=== PATIENT | female | born 1975 | race Caucasian/White ===

== ENCOUNTER 2024-03-13 14:20 | Emergency (ER) | payer MEDICARE, MEDICAID, SELFPAY ==
[2024-03-13 14:27] VITALS: BP 126/87; PULSE 91; TEMP 36.8; O2SAT 95; BMI 32.9
--- NOTE | 2024-03-13 14:37 | XR_ITS ---
The [address] [address] Patient Name: LISA MATIAS MRN: [id number] date: 1975 Sex: F Assigned Patient Location: ER Current Patient Location: ER Accession/Order Number: [id number] Exam Date: 03/13/2024 15:05 Report Date: 03/13/2024 15:49 At the request of: LISANDRA OLIVARES Procedure: XR hand RT 2V PROCEDURE: XR hand RT 2V, XR wrist RT min 3V HISTORY: fall ; right hand pain after falling COMPARISON: None. FINDINGS: BONES:No fracture, acute abnormality, or significant arthropathy. SOFT TISSUES:No visible soft tissue swelling. EFFUSION:None visible. OTHER: Negative. XR/XR hand RT 2V IMPRESSION: 1. No acute bone abnormality. Electronically authenticated by: DOROTHY CAMILO Date: 03/13/2024 15:49
--- NOTE | 2024-03-13 14:37 | XR_ITS ---
The [address] [address] Patient Name: LISA MATIAS MRN: [id number] date: 1975 Sex: F Assigned Patient Location: ER Current Patient Location: ER Accession/Order Number: [id number] Exam Date: 03/13/2024 15:05 Report Date: 03/13/2024 15:51 At the request of: LISANDRA OLIVARES Procedure: XR shoulder REGINA min 2V EXAMINATION: XR shoulder REGINA min 2V HISTORY: fall ; bilateral shoulder pain COMPARISON: No relevant comparison available. FINDINGS: RIGHT FINDINGS: BONES: No significant arthropathy or acute abnormality. SOFT TISSUES: No visible soft tissue swelling. OTHER: Healing fractures of the right 5th, sixth, seventh ribs. LEFT FINDINGS: BONES: No significant arthropathy or acute abnormality. SOFT TISSUES: No visible soft tissue swelling. OTHER: Negative. XR/XR shoulder REGINA min 2V IMPRESSION: RIGHT CONCLUSION: 1. No acute abnormality or significant degenerative changes of the right shoulder. 2. Healing right rib fractures. No comparison studies. LEFT CONCLUSION: 1. No acute abnormality or significant degenerative changes of the left shoulder. Electronically authenticated by: DOROTHY CAMILO Date: 03/13/2024 15:51
--- NOTE | 2024-03-13 14:38 | XR_ITS ---
The [address] [address] Patient Name: LISA MATIAS MRN: [id number] date: 1975 Sex: F Assigned Patient Location: ER Current Patient Location: ER Accession/Order Number: [id number] Exam Date: 03/13/2024 15:05 Report Date: 03/13/2024 15:49 At the request of: LISANDRA OLIVARES Procedure: XR wrist RT min 3V PROCEDURE: XR hand RT 2V, XR wrist RT min 3V HISTORY: fall ; right hand pain after falling COMPARISON: None. FINDINGS: BONES:No fracture, acute abnormality, or significant arthropathy. SOFT TISSUES:No visible soft tissue swelling. EFFUSION:None visible. OTHER: Negative. XR/XR wrist RT min 3V IMPRESSION: 1. No acute bone abnormality. Electronically authenticated by: DOROTHY CAMILO Date: 03/13/2024 15:49
--- NOTE | 2024-03-13 16:00 | ED.GENADUL1 ---
HPI HPI - General Adult General Chief complaint: Extremity Injury, Upper Stated complaint: FALL, SHOULDER PAIN Time Seen by Provider: 03/13/24 14:30 Source: patient and caregiver Mode of arrival: ambulance Limitations: no limitations and altered mental status History of Present Illness HPI narrative: The patient is coming to us from a [facility] after she apparently had a fall on her arm, patient fell going up 1 step and apparently is complaining of bilateral shoulder pain and right hand pain The patient had no loss of consciousness no head injury no other complaints Related Data Allergies Allergy/AdvReac Type Severity Reaction Status Date / Time No Known Drug Allergies Allergy Verified 03/13/24 14:27 Opioid HPI Opioid Management Most Recent Opioid Data: Last Pain Scale 4 03/13/24 14:50 03/13/24 Review of Systems ROS Status of ROS 10 or more systems reviewed and unremarkable except as noted in history and below Exam Narrative Exam Narrative: Nurses notes and vital signs reviewed and patient is not hypoxic. There is tenderness upon palpation of bilateral shoulder but the patient still have full range of movement: Also the patient have tenderness upon palpation of the right wrist mostly the whole wrist not only the scaphoid area and the patient have tenderness upon palpation of the medial half of the hand with no significant edema No vascular injury detected General: Well-appearing and in no apparent distress. Skin: Warm, dry, no pallor noted. No rash. Head: Normocephalic, atraumatic. Neck: Supple, non-tender. Eye: Pupils are equal, round and EOMI. No scleral icterus. Ears, Nose, Mouth, and Throat: TM are clear, no nasal mucosal hypertrophy. Oral mucosa is moist, no posterior oropharynx erythema, uvula is mid-line Cardiovascular: Regular Rate and Rhythm without murmur, gallop or rub. Respiratory: No accessory muscle use or respiratory distress. Lungs are clear to auscultation, no wheezing, rales or rhonchi Chest Wall: no tenderness Back: No midline thoracic or lumbar vertebral tenderness. No CVA tenderness GI: Abdomen is soft, non-distended. Normal bowel sounds. No masses appreciated. No tenderness to palpation. No rebound, guarding, or rigidity noted. Neurological: A&O x4. No cranial nerve dysfunction observed. No truncal ataxia. Moves all extremities. Sensation intact. Psychiatric: Cooperative and interactive. Normal mood and affect. Constitutional Vital Signs, click to edit/add: Last Vital Signs Temp 98.3 F 03/13/24 14:27 Pulse 71 03/13/24 16:35 Resp 16 03/13/24 16:35 BP 142/85 H 03/13/24 16:35 Pulse Ox 97 03/13/24 16:35 O2 Del Method Room Air 03/13/24 16:35 Course Vital Signs Vital signs: Vital Signs Temperature 98.3 F 03/13/24 14:27 Pulse Rate 91 H 03/13/24 14:27 Respiratory Rate 18 03/13/24 14:27 Blood Pressure 126/87 03/13/24 14:27 Pulse Oximetry 95 03/13/24 14:27 Temperature 98.3 F 03/13/24 14:27 Pulse Rate 71 03/13/24 16:35 Respiratory Rate 16 03/13/24 16:35 Blood Pressure 142/85 H 03/13/24 16:35 Pulse Oximetry 97 03/13/24 16:35 Oxygen Delivery Method Room Air 03/13/24 16:35 Medical Decision Making MDM Narrative Medical decision making narrative: X-ray of both shoulder showed no acute pathology The patient x-ray of the right hand as well as x-ray of the wrist showed no acute pathology The patient will be provided Velcro splint in addition to follow-up with the primary care as outpatient for repeat x-ray in a week in case of continuous Pain control right now with Tylenol or ibuprofen The patient is to follow up with primary care physician in next 2-3 days or to return to the emergency department should any of the signs or symptoms worsen or new symptoms develop. The patient agrees with the following Diagnosis and Treatment plan and the patient will be discharged home. Discharge Plan Discharge Chief Complaint: Extremity Injury, Upper Clinical Impression: Bilateral shoulder pain Qualifiers: Chronicity: acute Qualified Code(s): M25.511 - Pain in right shoulder Fall Qualifiers: Encounter type: initial encounter Qualified Code(s): W19.XXXA - Unspecified fall, initial encounter Hand pain Qualifiers: Laterality: right Qualified Code(s): M79.641 - Pain in right hand Pain in wrist Qualifiers: Laterality: right Qualified Code(s): M25.531 - Pain in right wrist Patient Disposition: Home, Self-Care Time of Disposition Decision: 16:07 Condition: Good Print Language: Nepalese Instructions: Wrist Injury (ED), Fall Prevention (ED), Shoulder Pain (ED) Referrals: REG URRUTIA [Primary Care Provider] - 1 week Discharge Date/Time: 03/13/24 16:38
[2024-03-13 16:35] VITALS: BP 142/85; PULSE 71; O2SAT 97
== END 2024-03-13 16:38 | disposition home or self-care (01) ==
PROVIDERS: Emergency Provider Emergency Medicine; Family Provider Family Medicine
DX: M79.641 Pain in right hand (principal); M25.531 Pain in right wrist; M25.511 Pain in right shoulder; M25.512 Pain in left shoulder; Z91.81 History of falling
CPT/HCPCS: 73030; 73110; 73120; 99283

== ENCOUNTER 2025-05-07 10:10 | Emergency (ER) | payer MEDICARE, MEDICAID, SELFPAY ==
[2025-05-07 10:28] VITALS: BP 140/86; PULSE 116; TEMP 37.6; O2SAT 96; BMI 39.0
--- NOTE | 2025-05-07 10:38 | XR_ITS ---
The [address] [address] Patient Name: LISA MATIAS MRN: [id number] date: 1975 Sex: F Assigned Patient Location: ER Current Patient Location: ER Accession/Order Number: [id number] Exam Date: 05/07/2025 10:45 Report Date: 05/07/2025 11:14 At the request of: LISANDRA OLIVARES MD Procedure: XR chest 1V PORTABLE AP ERECT CHEST 1028 hours CLINICAL HISTORY: Cough and sore throat for the past few days COMPARISON: None Evaluation is slightly limited by body habitus, position and shallow inspiration. The heart is borderline enlarged though is also accentuated. There is no vascular congestion. There is suspected soft tissue attenuation at the lower lungs. No definite consolidation is seen. There is no effusion or pneumothorax. There are old right rib fractures. Dextroscoliotic curvature is noted though potentially positional. XR/XR chest 1V IMPRESSION: NO DEFINITE ACUTE FINDINGS Impression dictated by: Miesha Rivera M.D. 05/07/2025 11:14 AM Dictation Location: iContact Electronically authenticated by: [id number] Y Date: 05/07/2025 11:14
[2025-05-07 11:02] LABS: SARS-CoV-2 Ag NEGATIVE (NEGATIVE)
[2025-05-07 11:18] LABS: Hematocrit 35.5 % (36.0-48.0); Hemoglobin 11.5 g/dL (12.0-16.0); Mean Corpuscular HGB Conc 32.4 g/dL (29.9-35.2); Mean Corpuscular Hemoglobin 27.0 pg (26.7-34.0); Mean Corpuscular Volume 83.3 fL (81.0-99.0); Platelet Count 168 10^3/uL (150-450); Red Blood Count 4.26 10^6/uL (4.20-5.40); White Blood Count 4.6 10^3/uL (4.0-11.0)
[2025-05-07 11:31] LABS: Alanine Aminotransferase 28 U/L (14-59); Albumin Globulin Ratio 1.0; Albumin Level 3.9 g/dL (3.4-5.0); Alkaline Phosphatase 100 U/L (46-116); Anion Gap 14.7; Aspartate Amino Transferase 30 U/L (15-37); Blood Urea Nitrogen 7.0 mg/dL (7.0-18.0); Calcium 9.1 mg/dL (8.5-10.1); Carbon Dioxide 25.3 mmol/L (21.0-32.0); Chloride 100 mmol/L (98-107); Estimated GFR (African America >60 (>=60 mL/min/1.73m^2); Estimated GFR (Non-African Ame >60 (>=60 mL/min/1.73m^2); Globulin 4.1 g/dL; Glucose 104 mg/dL (74-106); Potassium 4.0 mmol/L (3.5-5.1); Sodium 136 mmol/L (136-145); Total Protein 8.0 g/dL (6.4-8.2)
--- OUTSIDE RECORDS SUMMARY | 2025-05-07 11:31 | XMS_ITS ---
Author Organization [facility] Care Team Providers Care Ice Cream Scooper Name Role Phone Christine Hunter Unavailable Unavailable Mario Nassar Unavailable Unavailable Parrish Lea Unavailable Unavailable Miesha Parham Unavailable Unavailable Arabella Alegria NP Unavailable Unavailable Bakies, Britany Unavailable Unavailable Deb Nascimento M Unavailable Unavailable Thania Guthrie Unavailable Unavailable Allergies and adverse reactions No Known Allergies Care Team Name Role Address Phone Organization Dates Parrish Lea [address], [facility], [facility] (Office): : [facility] 12/03/2020 - 12/21/2020 Christine Hunter [address] [place] [address], [address], [place] (Office): [facility] 12/03/2020 - 12/21/2020 Mario Nassar [address], [address], [place] (Office): : : [facility] 12/03/2020 - 12/21/2020 Miesha Parham [address] [place], [address], [place] (Cell): : [facility] 12/03/2020 - 12/21/2020 Arabella Alegria [address] [place], [address], [place] (Office): : : [facility] 12/03/2020 - 12/21/2020 Britany Zaman [place], [place] (Cell): [facility] 12/03/2020 - 12/21/2020 Deb Nascimento [address] [place], [address], [place] (Office): : [facility] 12/03/2020 - 12/21/2020 Thania Alvarenga [employer], [address], [place] (Cell): : : [facility] 12/03/2020 - 12/21/2020 Insurance Providers Coverage Status Coverage Type Relationship to Subscriber Member Identifier Subscriber Identifier Group Identifier Payer Identifier and Other information Code: 1 Code System OID:[id number] [id number]. 3.221.5 Code System Name: Source of Payment Typology (PHDOK) Display: Medicare Translation : Code: JOSE Code System: OID:2.16.84 [id number]. 6.255.1336 Code System Name: Insurance Type Code ([id number]) Display Name: Medicare Part A Problems Problem # Description Date of onset Resolved Date Code CodeSystem Concern Status 1 BIPOLAR II DISORDER 12/02/[address] active 2 CEREBRAL PALSY, UNSPECIFIED 12/02/[address] active 3 GASTRO-ESOPHAGEAL REFLUX DISEASE WITHOUT ESOPHAGITIS 12/02/[address] active Reason for Referral No Reasons for Referral Entered Social History Social History Observation Description Start Date End Date Code Code System Current Smoking Status Tobacco smoking consumption unknown 544316197 SNOMED CT Sex Assigned At Female 1975 51126-1 [facility] Gender Identity Sexual Orientation Vital Signs Code Code System Vitals Name Values and Units Timing Information 92707-8 [facility] Pain Level Value=2.0 12/21/2020 40652-8 [facility] O2 % BldC Oximetry Gzckh=417.0 Units =% 12/21/2020 9279-1 [facility] Respiratory Rate Value=17.0 Units=/m in 12/21/2020 8867-4 [facility] Heart rate Value=78.0 Units=/min 07/2020 8310-5 [facility] Body Temperature Value=98.8 Units= F 12/21/2020 8462-4 [facility] Blood Pressure-Diastolic Value=85 Un its=mmHg 12/21/2020 8480-6 [facility] Blood Pressure-Systolic Tipum=946 Un its=mmHg 12/21/2020 02844-8 [facility] Weight Dqnds=222.0 Units=Lbs 8302-2 [facility] Height Value=62.0 Units=Inches 12/03/2020
--- OUTSIDE RECORDS SUMMARY | 2025-05-07 11:31 | XMS_ITS | Clinical Summary ---
Author Organization [facility] Address [address] [place] [address] Care Team Providers Care Consumer Educator Name Role Phone RoberthTaviaSharon Chloe L[place] Primary Care Provider Medications MedicationSigDispense QuantityRefillsLast FilledStart DateEnd DateStatus PROZAC 20MG PULVULE Take one(1) capsule daily.Active SEROQUEL 25MG TABLET 1 tab in am and 5 tabs at hs.Active Social History Tobacco UseTypesPacks/DayYears UsedDateSmoking Tobacco: Never Assessed CommentsNoSex and Gender InformationValueDate RecordedSex Assigned at BirthNot on fileLegal XitKiscdf00/02/2012 10:02 AM ESTGender IdentityNot on fileSexual OrientationNot on file Last Filed Vital Signs Vital SignReadingTime TakenCommentsBlood Pejdficm875/7608 1:05 PM EDT Uxwxy4059 1:05 PM EDTTemperature--Respiratory Rate--Oxygen Saturation-- Inhaled Oxygen Concentration--Vsdusd81.2 kg (115 lb)12/28/2003 1:05 PM EDTHeight --Body Mass Index-- Plan of Treatment Health MaintenanceDue DateLast DoneCommentsAnxiety Bfekvkcwc59/11/1996Depression Vqyimxdrp80/11/1996HIV Sswqjhqpm01/11/1996Hepatitis C Zywmehhkh94/11/1996 DTaP,Tdap,Td Vaccine (1 - Tdap)1996Hepatitis B Vaccine (1 of 3 - 19+ 3- dose series)1996Cervical Cancer Tvsacpzpv31/11/1999Mammogram Screening 2017CT Zkiptspdggph95/11/2023Cologuard (FIT-DNA)2022olonoscopy 2022olorectal Cancer Araxviiyi08/11/2023Diabetes Mprzzwevc53/11/2023Fecal Occult Blood2022Lipid Mtwqpobpr83/11/7164Yassmwhbrywcp29/11/2023ovid-19 Vaccine ( season)2025Influenza Vaccine (#1)2025 Insurance Care Teams Team MemberRelationshipSpecialtyStart DateEnd Date Sharon Lepe DO [address] [place] [address] PCP - General08/06/03
--- OUTSIDE RECORDS SUMMARY | 2025-05-07 11:31 | XMS_ITS | Clinical Summary ---
Author Organization [facility] Healthcare Address [address] [place] [address] Care Team Providers Care Regrinder Operator Name Role Phone Isadora Jerez MD Primary Care Provider [phone] Allergies No known active allergies Medications MedicationSigDispense QuantityRefillsLast FilledStart DateEnd DateStatus risperiDONE (RisperDAL) 2 MG tablet Take 2 mg by mouth at bedtimeActive lamoTRIgine (LaMICtal) 200 MG tablet Take 200 mg by mouth 1 (one) time each day at the same time.Active hydrOXYzine HCl (Atarax) 25 MG tablet Take 25 mg by mouth at icffmdq7306/12/2023ctive Multiple Vitamins-Minerals (EQ MULTIVITAMINS ADULT GUMMY PO) Take 1 each by mouth Daily 1 gummy once daily10/12/2023ctive pyrithione zinc (Head and Shoulders) 1 % shampoo Apply 1 application topically 2 (two) times a week Apply dandruff shampoo provided by Mother twice a week10/12/2023ctive Diapers & Supplies misc Indications:Urinary incontinence, unspecified type1 Units Daily 120 Device 11012/11/2023ctive sertraline (Zoloft) 100 MG tablet Take 100 mg by mouth in the morning and 100 mg before bedtime.4Active nystatin (Mycostatin) cream Indications:DermatitisApply topically 2 times a day x7 days per episode of redness or excoriated areas PRN 15 g 1105Active acetaminophen (Tylenol) 325 MG tablet Take 650 mg by mouth every 6 (six) hours if needed for mild pain5Active meclizine (Antivert) 25 MG tablet Take 25 mg by mouth 3 (three) times a day as needed for dizzinessActive risperiDONE (RisperDAL) 1 MG tablet Take 1.5 mg by mouth in the morning.5Active traZODone (Desyrel) 50 MG tablet Indications:Unsteadiness on feet,Schizoaffective disorder, bipolar type (HCC), Bipolar II disorder (HCC),Recurrent major depressive disorder, in partial remissionTake 1 tablet (50 mg) by mouth at bedtime for 7 days 30 tablet 5Active omeprazole (PriLOSEC) [address] capsule Indications:Gastro-esophageal reflux disease without esophagitisTake 1 capsule (20 mg) by mouth in the morning and 1 capsule (20 mg) in the evening. Take before meals. Do not crush or chew. 60 capsule 1115Active ferrous sulfate (Fe Tabs) 325 (65 Fe) MG EC tablet Indications:Normocytic anemiaTake 1 tablet (325 mg) by mouth in the morning. Take with meals. Do not crush, chew, or split. 90 tablet [id number] Active Problems ProblemNoted DateDiagnosed DateFoot drop, right foot03/24/2024 Assessment & Plan (03/03/2025 3:53 PM EDT): Stable, continue to monitor. No change in regimen. Discussed possible need for PT in the future Class 2 vlfmgbr7602/26/2023ait aflyklqpbq48/09/2023ait yyzwgmpqpkl65/09/2023Leg weakness, ncsmmxuji55/06/2023Unsteadiness on feet11/23/2022Rib pain on right side11/23/2022eripheral venous ugyjrubazjrjm63/20/2021erebral palsy12/23/2020 Gastro-esophageal reflux disease without wbcqvhljgta16/05/2021 Assessment & Plan (03/03/2025 3:53 PM EDT): Stable, continue to monitor. No change in regimen. Posttraumatic stress /06/2021ecurrent major depressive disorder, in partial fbdaditkv41/20/2021chizoaffective disorder, bipolar type06/11/2018 Bipolar 1 hirtmjak32/15/2015 Assessment & Plan (03/03/2025 3:52 PM EDT): Stable, continue to monitor. No change in regimen. Continue to follow w/ psych Resolved Problems ProblemNoted DateDiagnosed DateResolved DateIron deficiency xekbzj7709/27/2020 02/26/2023 Encounters DateTypeDepartmentCare DvfhEzjrgprtphc32/20/2025Patient Outreach [facility] [address] [place] [address] Amy Lockwood LPN 03/07/2025Results Follow-Up [facility] [address] [place] [address] Glenda Potter MD CBC and differential, Comprehensive metabolic panel, TSH REFLEX TO T4F, Additional followed-up results: 3:00 PM EDTOffice Visit [facility] [address] [place] [address] Glenda Potter MD Encounter for Medicare annual wellness exam (Primary Dx); Gastro-esophageal reflux disease without esophagitis; Screening for metabolic disorder; Screening for hyperlipidemia; Encounter for screening for malignant neoplasm of colon; Foot drop, right foot; Unsteadiness on feet; Gait difficulty; Other cerebral palsy (HCC); BMI 36.0-36.9,adult; Morbid obesity ([facility]); Bipolar 1 disorder (HCC)03/03/2025amboo flowsheet [facility] [address] [place] [address] Glenda Potter MD 03/03/20255420Xoiaee77/06/2025 3:20 PM EDTProcedure Visit [facility] [address] [place] [address] Renan Carlton DPM Plantar fasciitis (Primary Dx); Contracture of left ankle; Pain due to onychomycosis of toenails of both feet; Other cerebral palsy (HCC)02/23/2025amboo flowsheet [facility] [address] [place] [address] Renan Carlton DPM 02/05/2025Patient Outreach [facility] [address] [place] [address] Amy Lockwood LPN from Last 3 Months Immunizations ImmunizationAdministration DatesNext DueInfluenza, injectable, quadrivalent 02/26/2023 Family History Medical HistoryRelationNameCommentsHeart diseaseFatherMelanomaNeg HxRelationName StatusCommentsBrother2 brothersFatherAliveMotherAlive Social History Tobacco UseTypesPacks/DayYears UsedDateSmoking Tobacco: NeverSmokeless Tobacco: Never Tobacco Cessation:Counseling Given: Not Answered Alcohol UseStandard Drinks/WeekCommentsNever0 (1 standard drink = 0.6 oz pure alcohol)Coffee 1-2 cups per dayPHQ-2AnswerDate RecordedPatient Health Questionnaire-2 Qozvz463EducationAnswerDate RecordedWhat is the highest level of school you have completed or the highest degree you have received?High school jiqembha49/17/2023CommentsNoSex and Gender InformationValueDate RecordedSex Assigned at BirthNot on fileLegal MnkDbccal56/15/2023 7:00 PM EDT Gender QowwbgrcSoucvg39/15/2023 7:00 PM EDTSexual OrientationNot on file OccupationIndustryJob Start DateJob End DateWorks part-time First choiceNot on fileNot on fileNot on file Last Filed Vital Signs Vital SignReadingTime TakenCommentsBlood Uuwkilwh933/7610 3:03 PM EDT Djcvz250903/03/2025 3:03 PM IWSYhyyphpiuyh06 ??C (98.6 ??F)03/03/2025 3:03 PM EDT Respiratory Ihpn8621 3:22 PM EDTOxygen Vyrrpuyibg93%03/03/2025 3:03 PM EDTInhaled Oxygen Concentration--Tuqgou72.7 kg (211 lb)03/03/2025 3:03 PM EDT Ovqknb097.6 cm (5' 4 )03/03/2025 3:03 PM EDTBody Mass Index36.221 3:03 PM EDT Plan of Treatment DateTypeDepartmentCare Team (Latest Contact Info)Wgbqfnohgvc68/22/2025 1:20 PM ESTOffice Visit [facility] [place] [facility] [address] [place] [address] Scarlett Jordan PA [address] [place] [address] 05/11/2025 3:00 PM ESTProcedure Visit [facility] [address] [place] [address] Renan Carlton DPM [address] [address] Health MaintenanceDue DateLast DoneCommentsCT Ykjsnpooavkb81/11/1978Colonoscopy 1977FIT1977FOBT1977 6021Hvesihnbpyamk90/11/1978Pap Smear1998 Cervical Cancer Imvtapmot64/11/2008HPV/Muvzbc1311/29/20074766Loqkwqcbh72/15/2020 12/02/2018COVID-19 Vaccine ( season), 05/12/2020 Influenza Vaccine (#1)Medicare Annual Wellness (AWV) , 02/29/2024, 02/26/2023olorectal Cancer Screening 03/21/2028FIT-DNAPneumococcal Vaccine: Pediatrics (0 to 5 Years) and At-Risk Patients (6 to 64 Years)Aged OutNo longer eligible based on patient's age to complete this topic Procedures Procedure NamePriorityDate/TimeAssociated DiagnosisCommentsLAB COLOGUARD?? COLON CANCER YVVMEIMdywrok58/01/2025 11:30 AM EDT Encounter for screening for malignant neoplasm of colon IWCWyvtaqq73/21/2025 4:49 PM EDT Elevated alkaline phosphatase level COMPREHENSIVE METABOLIC JNGWNMidvvqs82/21/2025 4:49 PM EDT Elevated alkaline phosphatase level FOLATE, YZRCJYvgqpgx27/21/2025 4:49 PM EDT Normocytic anemia VITAMIN W85Nscukzm08/21/2025 4:49 PM EDT Normocytic anemia WKEYFFNPOryvmvs73/21/2025 4:49 PM EDT Normocytic anemia IRON + TRANSFERRIN + RYXPIwclsrt17/21/2025 4:49 PM EDT Normocytic anemia CBC (INCLUDES DIFF/PLT)Midkoxq6503/10/2025 4:49 PM EDT Normocytic anemia LIPID HHBRPAmerjmr82/16/2025 7:21 AM EDT Screening for hyperlipidemia TSH REFLEX TO I2IQrtgnzc68/16/2025 7:21 AM EDT Screening for metabolic disorder COMPREHENSIVE METABOLIC PIFTJKdzcdrf12/16/2025 7:21 AM EDT Screening for metabolic disorder CBC (INCLUDES DIFF/PLT)Dkoflgg6403/05/2025 7:21 AM EDT Screening for metabolic disorder BI MAMMOGRAM SCREENING RNIMKAVKUVhafijc47/15/2019 12:00 PM EDT from Last 3 Months or Most Recently Relevant to Health Maintenance Results * Cologuard?? colon cancer screening (03/21/2025 11:30 AM EDT)ComponentValueRef RangeTest MethodAnalysis TimePerformed AtPathologist SignatureNONINV COLON CA DNA+OCC BLD SCRN STL-LAJUcceprbkKcjuzgpf91/08/2025 10:34 AM [facility] (CLIA #:[id number])Comment: The Cologuard Plus (TM) test was performed on this specimen. NEGATIVE TEST RESULT. A negative (normal) Cologuard Plus result means the patient has a qzge-ykge-wuzaidz chance of having colorectal cancer (CRC) or advanced precancer (polyps or lesions that could become cancer). Negative is the normal value (reference range) for this assay. Guidelines recommend screening again 3 years after a negative Cologuard Plus result. Continued screening increases the chance of finding CRC early or preventing it entirely. A clinical validation study showed the Cologuard Plus test is effective at ruling out CRC. Out of every 10,000 patients testing negative, approximately 2 will be falsely reassured that they do not have CRC, and out of every 100 patients testing negative, approximately 7 patients will be falsely reassured they do not have advanced precancer. TEST DESCRIPTION: The Cologuard Plus test is a multi-target stool DNA (mt-sDNA) test that analyzes DNA and hemoglobin biomarkers in stool. It uses a proprietary algorithm to qualitatively detect CRC and advanced precancer. It is FDA-approved and indicated for use in adults 45 years or older at average risk for CRC. A positive (abnormal) result should be followed by a colonoscopy. Patients with a negative (normal)result should screen again in 3 years. False positive and false negative results may occur. The USPSTF recommends the Cologuard test as a CRC screening option. Their modeling estimates that screeningwith the test every 3 years from ages 45-85 could prevent up to 73% of CRC and avoid up to 85% of CR C deaths. A 18,911-patient clinical trial found the Cologuard Plus test effectively detects CRC and precancer. The study found the test was 95% sensitive for CRC, 43% sensitive for advanced precancer, and had a 91% specificity (Cologuard Plus Clinician Brochure. [employer]. [place], [place].). Visit [email or web address] for more test information, references, warnings, and precautions. Specimen (Source)Anatomical Location / LateralityCollection Method / Volume Collection TimeReceived TimeStool specimen (specimen)03/21/2025 11:30 AM EDT 03/24/2025 11:21 AM EST Narrative Authorizing ProviderResult TypeResult Nereida JEAN MOLECULAR DIAGNOSTICS ORDERABLESFinal ResultPerforming OrganizationAddressCity/State/ZIP CodePhone Number .[employer] (CLIA #:[id number]) [address] [address], [place] [phone] [employer] (CLIA #:[id number]) [address] [place] [address] * (ABNORMAL) Iron + transferrin + TIBC (03/10/2025 4:49 PM EDT)ComponentValueRef RangeTest MethodAnalysis TimePerformed AtPathologist SignatureIron Bind.Cap.(TIBC)466(H)250 - 450 ug/qGOEBGCVYEOKE996(H)131 - 425 ug/dLLABCORP Iron16(L)27 - 159 ug/dLLABCORPIron Saturation3(LL)15 - 55 %LABCORPTRANSFERRIN 549365 - 364 mg/dLLABCORPSpecimen (Source)Anatomical Location / Laterality Collection Method / VolumeCollection TimeReceived RnygBzfzo63/21/2025 4:49 PM EDT1 Narrative [facility] - 03/11/2025 8:35 AM EDT Performed at: 01 - [facility] [address] ??[id number] Fork Truck Driver: Chip Heck PhD, Phone: ??[phone] Authorizing ProviderResult TypeResult Nereida JEAN BLOOD ORDERABLESFinal ResultPerforming OrganizationAddressCity/State/ZIP CodePhone Number [facility] * (ABNORMAL) CBC and differential (03/10/2025 4:49 PM EDT) Only the most recent of2 resultswithin the time period is included. ComponentValueRef RangeTest MethodAnalysis TimePerformed AtPathologist Signature WBC4.93.4 - 10.8 x10E3/uLLABCORPRBC4.023.77 - 5.28 x10E6/eXMYCXIKUZxd07.0(L)11.1 - 15.9 g/lGNXYMDLUVem54.5(L)34.0 - 46.6 %WCSKNDLHJU0835 - 97 oYZYCGMZGSVX13.9(L) 26.6 - 33.0 nsMWYCWFYDLDF97.8(L)31.5 - 35.7 g/tAOSBLHKYGRZ38.711.7 - 15.4 % MBAXHSJIocxfcjjn303562 - 450 x10E3/sEEPKMXKPUeiiugagqvi69Lrw Estab. %[facility] Bmorgn16Wec Estab. %SJAJVVNTbqghaqib4Gzk Estab. %QGFYKLWJqg3Plv Estab. %[facility] Qauzi5Moj Estab. %LABCORPNeutrophils Abs3.01.4 - 7.0 x10E3/uLLABCORPLymphs Abs 1.50.7 - 3.1 x10E3/uLLABCORPMonocytesAbs0.30.1 - 0.9 x10E3/uLLABCORPEos Abs0.0 0.0 - 0.4 x10E3/uLLABCORPBaso Abs0.00.0 - 0.2 x10E3/uLLABCORPImmature Slohsgceizvm2Jml Estab. %LABCORPImmature Grans Abs0.00.0 - 0.1 x10E3/uLLABC[facility]P Specimen (Source)Anatomical Location / LateralityCollection Method / Volume Collection TimeReceived TimeBloodVenous blood specimen / Erwjcwj5303/10/2025 4:49 PM EDT1 Narrative [facility] - 03/11/2025 8:35 AM EDT Performed at: 01 - [address] ??[id number] Fork Truck Driver: Chip Heck PhD, Phone: ??[phone] Authorizing ProviderResult TypeResult StatusGlenda Potter MDLAB BLOOD ORDERABLESFinal ResultPerforming OrganizationAddressCity/State/ZIP CodePhone Number [facility] * Gamma GT (03/10/2025 4:49 PM EDT)ComponentValueRef RangeTest MethodAnalysis TimePerformed AtPathologist RgmjcegziWLJ108 - 60 IU/[facility]ABC[facility]PSpecimen (Source) Anatomical Location / LateralityCollection Method / VolumeCollection Time Received TimeBloodVenous blood specimen / Uxywiex3403/10/2025 4:49 PM EDT 03/10/2025 Narrative [facility] - 03/11/2025 8:35 AM EDT Performed at: [address] ??[id number] Fork Truck Driver: Chip Heck PhD, Phone: ??[phone] Authorizing ProviderResult TypeResult StatusGlenda Potter MDSAINT [facility]OH[facility] BLOOD ORDERABLESFinal ResultPerforming OrganizationAddressCity/State/ZIP CodePhone Number [facility] * Folate (03/10/2025 4:49 PM EDT)ComponentValueRef RangeTest MethodAnalysis Time Performed AtPathologist JtvabgkzuKtutxx95.7>3.0 ng/mLLABCORPComment: A serum folate concentration of less than 3.1 ng/mL is considered to represent clinical deficiency. Specimen (Source)Anatomical Location / LateralityCollection Method / Volume Collection TimeReceived TimeBloodVenous blood specimen / Xfcbebz2803/10/2025 4:49 PM EDT1 Narrative [facility] - 03/11/2025 8:35 AM EDT Performed at: [address] ??[id number] Fork Truck Driver: Chip Heck PhD, Phone: ??[phone] Authorizing ProviderResult TypeResult Nereida Potter MDSA[facility] BLOOD ORDERABLESFinal ResultPerforming OrganizationAddressCity/State/ZIP CodePhone Number [facility] * (ABNORMAL) Ferritin (03/10/2025 4:49 PM EDT)ComponentValueRef RangeTest Method Analysis TimePerformed AtPathologist XsaembfngYuwmufve11(L)15 - 150 ng/mL [facility]PSpecimen (Source)Anatomical Location / LateralityCollection Method / VolumeCollection TimeReceived TimeBloodVenous blood specimen / Unknown 03/10/2025 4:49 PM EDT1 Narrative [facility] - 03/11/2025 8:35 AM EDT Performed at: - [address] ??[id number] [employer] Truck Driver: Chip Heck PhD, Phone: ??[phone] Authorizing ProviderResult TypeResult Nereida Potter [facility] BLOOD ORDERABLESFinal ResultPerforming OrganizationAddressCity/State/ZIP CodePhone Number [facility] * Vitamin B12 (03/10/2025 4:49 PM EDT)ComponentValueRef RangeTest MethodAnalysis TimePerformed AtPathologist SignatureVitamin [id number] - 1,245 pg/mLLABC[facility]P Specimen (Source)Anatomical Location / LateralityCollection Method / Volume Collection TimeReceived TimeBloodVenous blood specimen / Tqsohhv8903/10/2025 4:49 PM EDT1 Narrative [facility] - 03/11/2025 8:35 AM EDT Performed at: 01 - [address] ??[id number] [employer] Truck Driver: Chip Heck PhD, Phone: ??[phone] Authorizing ProviderResult TypeResult Nereida Potter [facility] BLOOD ORDERABLESFinal ResultPerforming OrganizationAddressCity/State/ZIP CodePhone Number [facility] * Comprehensive metabolic panel (03/10/2025 4:49 PM EDT) Only the most recent of2 resultswithin the time period is included. ComponentValueRef RangeTest MethodAnalysis TimePerformed AtPathologist Signature Efhjuke8106 - 99 mg/jFNMLXYWHTRI759 - 24 mg/dLLABCORPCreat0.690.57 - 1.00 mg/dL XHSVJUOOAEH911>59 mL/min/1.73LABCORPBUN/Creat Yokwv060 - 31FKEAVTLBwliad085986 - 144 mmol/[facility]PPotassium4.43.5 - 5.2 mmol/UDPCCNOHUjnrendi99816 - 106 mmol/L [facility]PCarbon Kyqmasb9871 - 29 mmol/[facility]ABCORPCalcium9.28.7 - 10.2 mg/dLLABC[facility]P Protein Total7.56.0 - 8.5 g/dLLABCORPAlbumin4.43.9 - 4.9 g/dLLABCORPGlobulin Total3.11.5 - 4.5 g/dLLABCORPBili Total<0.20.0 - 1.2 mg/dLLABCORPAlk Phosphatase 15893 - 116 IU/QYZTRKKSTYP368 - 40 IU/YKFGTLSXONV228 - 32 IU/[facility]PSpecimen (Source)Anatomical Location / LateralityCollection Method / VolumeCollection TimeReceived TimeBloodVenous blood specimen / Nxoczjm5403/10/2025 4:49 PM EDT 03/10/2025 Narrative [facility] - 03/11/2025 8:35 AM EDT Performed at: - [address] ??[id number] F[employer] Truck Driver: Chip Heck PhD, Phone: ??[phone] Authorizing ProviderResult TypeResult Nereida Potter MDSA[facility] BLOOD ORDERABLESFinal ResultPerforming OrganizationAddressCity/State/ZIP CodePhone Number [facility] * TSH REFLEX TO T4F (03/05/2025 7:21 AM EDT)ComponentValueRef RangeTest Method Analysis TimePerformed AtPathologist SignatureTSH W/REFLEX TO FT41.6300.450 - 4.500 uIU/mLLABCORPSpecimen (Source)Anatomical Location / LateralityCollection Method / VolumeCollection TimeReceived Time03/05/2025 7:21 AM EDT1 Narrative [facility] - 03/06/2025 8:35 AM EDT Performed at: - [facility] [address] [facility], [address] [place] [address] ??[id number] Fork Truck Driver: Sridhar Renner MD, Phone: ??[phone] Authorizing ProviderResult TypeResult Nereida Potter MDSA[facility] BLOOD ORDERABLESFinal ResultPerforming OrganizationAddressCity/State/ZIP CodePhone Number [facility] * (ABNORMAL) Lipid panel (03/05/2025 7:21 AM EDT)ComponentValueRef RangeTest MethodAnalysis TimePerformed AtPathologist SignatureCholesterol, Efbys842990 - 199 mg/iRNBWSULBWnzqmygkmpnso735 - 149 mg/dLLABCORPHDL Nzrwtylaqzv67>39 mg/dL LABCORPVLDL Cholesterol Ehg825 - 40 mg/dLLABCORPLDL Chol Calc ([facility])118(H)0 - 99 mg/dLLABCORPSpecimen (Source)Anatomical Location / LateralityCollection Method / VolumeCollection TimeReceived TimeBloodVenous blood specimen / Mugammh1403/05/2025 7:21 AM EDT1 Narrative [facility] - 03/06/2025 8:35 AM EDT Performed at: - [facility] [address], [place], [place] ??[id number] Fork Truck Driver: Chip Heck PhD, Phone: ??[phone] Authorizing ProviderResult TypeResult Nereida JEAN BLOOD ORDERABLESFinal ResultPerforming OrganizationAddressCity/State/ZIP CodePhone Number [facility] * Bilateral screening mammogram (12/02/2018 12:00 PM EDT)Anatomical Region LateralityModalityBreastBilateralMammographySpecimen (Source)Anatomical Location / LateralityCollection Method / VolumeCollection TimeReceived Time Narrative 12/02/2018 12:00 PM EDT PERFORMED AT [facility] [place] LOCATION:[id number] Negative Procedure Note CONVERSION, GENERIC / Sharon Lepe, DO - 11/24/2022 PERFORMED AT [facility] [place] LOCATION:[id number] Negative Authorizing ProviderResult TypeResult StatusJesaumya Lepe DOI BI PROCEDURESFinal Result from Last 3 Months or Most Recently Relevant to Health Maintenance Insurance Care Teams Team MemberRelationshipSpecialtyStart DateEnd Isadora Jerez MD [address] [place] [address] [facility] - [facility]23
[2025-05-07 11:34] LABS: Lactate/Lactic Acid 0.7 mmol/L (0.4-2.0)
[2025-05-07 11:41] LABS: Segmented Neut Absolute Manual 3.91 10^3/uL (1.4-6.5); Segmented Neutrophils % Manual 85.0 (43.0-75.0)
[2025-05-07 11:42] LABS: Anisocytosis 1+; Basophils Abs Manual 0.00 10^3/uL (0.00-0.10); Basophils Percent Manual 0.0 % (0.2-2.0); Eosinophils Absolute Manual 0.00 10^3/uL (0.00-0.70); Eosinophils Percent Manual 0.0 % (0.9-7.0); Lymphocytes Absolute Manual 0.46 10^3/uL (1.20-3.80); Lymphocytes Percent Manual 10.0 % (20.5-60.0); Monocytes Absolute Manual 0.23 10^3/uL (0.30-0.80); Monocytes Percent Manual 5.0 % (1.7-12.0)
--- NOTE | 2025-05-07 11:51 | ED_ITS ---
HPI - URI/Sore Throat General Chief Complaint: Upper Respiratory Infection Stated Complaint: COUGH WEAKNESS SOB Time Seen by Provider: 05/07/25 10:37 Source: patient Limitations: no limitations History of Present Illness HPI Narrative: The patient brought to us by her caregiver she have a history of MRDD and resides in a skilled nursing. Apparently she has been having cough and decreased p.o. intake for the last few days in addition to body ache and change in voice and also sore throat No difficulty swallowing no other concerns Related Data Previous Rx's ?Medication ?Instructions ?Recorded camphor 4.7 %-eucalyptus oil 1.2 1 applic topical YOSELYN Y PRN cold 05/07/25 %-menthol 2.6 % topical ointment symptoms #50 grams (Vicks Vaporub) guaifenesin 600 mg tablet, 600 mg PO BID PRN cough #14 tabs 05/07/25 extended release 12 hr (Mucinex) prednisone 20 mg tablet 40 mg (2 x 20 mg) PO DAILY 5 days 05/07/25 #10 tabs Allergies Allergy/AdvReac Type Severity Reaction Status Date / Time No Known Drug Allergies Allergy Verified 05/07/25 10:28 Review of Systems ROS Status of ROS 10 or more systems reviewed and unremark able except as noted in history and below PFSH PFSH Social History Little interest or pleasure in doing things: not at all Feeling down, depressed, or hopeless: not at all Exam Narrative Exam Narrative: Nurses notes and vital signs reviewed and patient is not hypoxic. General: Well-appearing and in no apparent distress. Skin: Warm, dry, no pallor noted. No rash. Head: Normocephalic, atraumatic. Neck: Supple, non-tender. Eye: Pupils are equal, round and EOMI. No scleral icterus. Ears, Nose, Mouth, and Throat: Congested nasal mucosa bilaterally Cardiovascular: Regular Rate and Rhythm without murmur, gallop or rub. Respiratory: No accessory muscle use or respiratory distress. Lungs are clear to auscultation, no wheezing, but suspects rhonchi at the bases Back: No midline thoracic or lumbar vertebral tenderness. No CVA tenderness Musculoskeletal: normal ROM, no calf or popliteal tenderness, no lower extremity edema/swelling GI: Abdomen is soft, non-distended. Normal bowel sounds. No masses appreciated. No tenderness to palpation. No rebound, guarding, or rigidity noted. Psychiatric: Cooperative and interactive. Normal mood and affect. Constitutional Vital Signs, click to edit/add: Last Vital Signs Temp 99.6 F 05/07/25 10:28 Pulse 116 H 05/07/25 10:28 Resp 20 05/07/25 10:28 BP 140/86 05/07/25 10:28 Pulse Ox 96 05/07/25 10:28 O2 Del Method Room Air 05/07/25 10:28 Course Vital Signs Vital signs: Vital Signs Temperature 99.6 F 05/07/25 10:28 Pulse Rate 116 H 05/07/25 10:28 Respiratory Rate 20 05/07/25 10:28 Blood Pressure 140/86 05/07/25 10:28 Pulse Oximetry 96 05/07/25 10:28 Oxygen Delivery Method Room Air 05/07/25 10:28 Temperature 99.6 F 05/07/25 10:28 Pulse Rate 116 H 05/07/25 10:28 Respiratory Rate 20 05/07/25 10:28 Blood Pressure 140/86 05/07/25 10:28 Pulse Oximetry 96 05/07/25 10:28 Oxygen Delivery Method Room Air 05/07/25 10:28 MDM - URI/Sore Throat MDM Narrative Medical decision making narrative: The patient chest x-ray showed no acute pathology COVID and flu test are negative CBC and chemistry showed no acute significant pathology Patient presenting to us with mostly viral illness bronchitis and laryngitis Hydration was instructed in addition to supportive care with Mucinex The patient to follow-up with the primary care within 2 to 3 days and to come back to the ER in case of any worsening of the current symptoms or any new symptoms or concerns Lab Data Labs: Lab Results 05/07/25 05/07/25 Range/Units 10:34 11:11 WBC 4.6 (4.0-11.0) 10^3/uL RBC 4.26 (4.20-5.40) 10^6/uL Hgb 11.5 L (12.0-16.0) g/dL Hct 35.5 L (36.0-48.0) % MCV 83.3 (81.0-99.0) fL MCH 27.0 (26.7-34.0) pg MCHC 32.4 (29.9-35.2) g/dL RDW 17.8 H (11.0-15.0) % Plt Count 168 (150-450) 10^3/uL MPV 10.2 (9.5-13.5) fL Seg Neuts % (Manual) 85.0 H (43.0-75.0) Lymphocytes % (Manual) 10.0 L (20.5-60.0) % Monocytes % (Manual) 5.0 (1.7-12.0) % Eosinophils % (Manual) 0.0 L (0.9-7.0) % Basophils % (Manual) 0.0 L (0.2-2.0) % Neutrophils # (Manual) 3.91 (1.4-6.5) 10^3/uL Lymphocytes # (Manual) 0.46 L (1.20-3.80) 10^3/uL Monocytes # (Manual) 0.23 L (0.30-0.80) 10^3/uL Eosinophils # (Manual) 0.00 (0.00-0.70) 10^3/uL Basophils # (Manual) 0.00 (0.00-0.10) 10^3/uL Anisocytosis 1+ Sodium 136 (136-145) mmol/L Potassium 4.0 (3.5-5.1) mmol/L Chloride 100 (98-107) mmol/L Carbon Dioxide 25.3 (21.0-32.0) mmol/L Anion Gap 14.7 BUN 7.0 (7.0-18.0) mg/dL Creatinine 0.72 (0.55-1.02) mg/dL Est GFR ( Amer) >60 (>=60 mL/min/1.73m^2) Est GFR (Non-Af Amer) >60 (>=60 mL/min/1.73m^2) BUN/Creatinine Ratio 9.7 Glucose 104 (74-106) mg/dL Lactate 0.7 (0.4-2.0) mmol/L Calcium 9.1 (8.5-10.1) mg/dL Total Bilirubin 0.2 (0.2-1.0) mg/dL AST 30 (15-37) U/L ALT 28 (14-59) U/L Alkaline Phosphatase 100 (46-116) U/L Total Protein 8.0 (6.4-8.2) g/dL Albumin 3.9 (3.4-5.0) g/dL Globulin 4.1 g/dL Albumin/Globulin Ratio 1.0 Influenza Type A Ag Negative Influenza Type B Ag Negative SARS-CoV-2 Ag (CV2AG) Negative (NEGATIVE) Streptococcus Screen Negative Discharge Plan Discharge Chief Complaint: Upper Respiratory Infection Clinical Impression: Bronchitis, Laryngitis Patient Disposition: Home, Self-Care Time of Disposition Decision: 11:52 Condition: Good Prescriptions / Home Meds: New prednisone 20 mg tablet 40 mg PO DAILY 5 Days Qty: 10 0RF guaifenesin [Mucinex] 600 mg tablet extended release 12hr 600 mg PO BID PRN (Reason: cough) Qty: 14 0RF Vicks Vaporub 4.7-1.2-2.6 % ointment 1 applic topical DAILY PRN (Reason: cold symptoms) Qty: 50 0RF Print Language: Slovak Instructions: Acute Bronchitis (ED) Additional Instructions: Please make sure the patient hydrate very well Referrals: REG URRUTIA [Primary Care Provider] - 1 week Discharge Date/Time: 05/07/25 12:17
== END 2025-05-07 12:17 | disposition home or self-care (01) ==
PROVIDERS: Emergency Provider Emergency Medicine; Family Provider Family Medicine
DX: J40 Bronchitis, not specified as acute or chronic (principal); J04.0 Acute laryngitis; R06.02 Shortness of breath; F79 Unspecified intellectual disabilities
CPT/HCPCS: 36415; 71045; 80053; 83605; 85007; 85027; 87070; 87804; 87811; 87880; 99283